=== PATIENT | female | born 1945 | race Caucasian/White ===

== ENCOUNTER → 2016-06-08 | Outpatient (CLI) | payer OTHER ==
[~2016-06-08] MED LIST: ACYCLOVIR 400400 M1 PO; ADULT LOW DOSE81 MG PO; ADVAIR 250-501 EACH IH; ARAVA10 MG PO; ATROVENT30 ML INH; CALCIUM 500 +1 EAC5 PO; CELEXA40 MG PO; CYCLOBENZAPRINE10 MG PO; CYMBALTA60 MG PO; FISH OIL 1,2001 EAC4 PO; FOLIC ACID 40400 MCG PO; FOSAMAX 70 MG T70 M1 PO; LASIX 40 MG TAB40 M1 PO; LEVOTHYROXIN0.125 M1 PO; LIDODERM 5%1 PATCH TOP; METHOTREXATE 22.5 MG PO; MIRALAX255 GM PO; NEXIUM40 MG PO; NORCO 10-325 T1 EACH PO; ORADENT 0.1% DEN5 GM; OXYCODONE HCL5 M1 PO; POTASSIUM20 PO; REMICADE 1100 MG/VIA IV; RESTORIL30 MG PO; VITAMIN D31000 UNI2 PO; [UNRECOGNIZED DRUG - CODE]
== END ==
LOC: RAD 10:22
DX: R91.8 Other nonspecific abnormal finding of lung field (principal)